=== PATIENT | male | born 1955 | race Caucasian/White ===

== ENCOUNTER 2018-02-28 20:52 | Emergency (ER) | payer OTHER ==
[2018-02-28 20:57] VITALS: RESP 18
[2018-02-28] MEDS ORDERED: SODIUM CHLORIDE 0.9% 1,000 ML IV STA ×2 (21:00)
[2018-02-28 21:41] LABS: Basophils # (A) 0.1 k/uL (0-0.2); Basophils % (A) 0 %; Eosinophils # (A) 0.3 k/uL (0-0.7); Eosinophils % (A) 2 %; HCT 48.5 % (39.0-53.0); Lymphocytes # (A) 1.4 k/uL (1.0-4.8); Lymphocytes % (A) 11 %; MCH 29.1 pg (25.0-35.0); MCV 88.2 fL (80.0-100.0); Mean Platelet Volume 6.8; Monocytes # (A) 0.4 k/uL (0-1.0); Monocytes % (A) 3 %; Neutrophils # (A) 10.4 k/uL (1.3-7.7); Neutrophils % (A) 82 %; Platelet Count 240 k/uL (150-450); RDW 13.6 % (11.5-15.5); WBC 12.7 k/uL (3.8-10.6)
--- NOTE | 2018-02-28 21:41 | ED ---
General Adult HPI - General Chief complaint: Dizziness Stated complaint: Dizziness Time Seen by Provider: 02/28/18 21:00 Source: patient, RN notes reviewed, old records reviewed Mode of arrival: ambulatory Limitations: no limitations - History of Present Illness Initial comments: This is a 63-year-old male to the ER for evaluation. This male presents for evaluation regards to near syncopal event. Patient has history of heart disease but coming in for evaluation of a diaphoretic event while at a wedding family. Patient states is been a long day. He started feeling well throughout the day but no chest pain no headache no shortness of breath no abdominal pain. He did have some abdominal cramping prior to dinner and then had an episode of severe diaphoresis and all symptoms are now resolved. Patient again currently denying any complaints - Related Data Allergies Allergy/AdvReac Type Severity Reaction Status Date / Time No Known Allergies Allergy Verified 02/28/18 20:56 Review of Systems ROS Statement: Those systems with pertinent positive or pertinent negative responses have been documented in the HPI. ROS Other: All systems not noted in ROS Statement are negative. Past Medical History Past Medical History: Cancer Additional Past Medical History / Comment(s): colon cancer History of Any Multi-Drug Resistant Organisms: None Reported Past Surgical History: Bowel Resection, Heart Catheterization With Stent Past Psychological History: No Psychological Hx Reported Smoking Status: Never smoker Past Alcohol Use History: None Reported Past Drug Use History: None Reported General Exam Limitations: no limitations General appearance: alert, in no apparent distress Head exam: Present: atraumatic, normocephalic, normal inspection Eye exam: Present: normal appearance, PERRL, EOMI. Absent: scleral icterus, conjunctival injection, periorbital swelling ENT exam: Present: normal exam, mucous membranes moist Neck exam: Present: normal inspection. Absent: tenderness, meningismus, lymphadenopathy Respiratory exam: Present: normal lung sounds bilaterally. Absent: respiratory distress, wheezes, rales, rhonchi, stridor Cardiovascular Exam: Present: regular rate, normal rhythm, normal heart sounds. Absent: systolic murmur, diastolic murmur, rubs, gallop, clicks GI/Abdominal exam: Present: soft, normal bowel sounds. Absent: distended, tenderness, guarding, rebound, rigid Extremities exam: Present: normal inspection, full ROM, normal capillary refill. Absent: tenderness, pedal edema, joint swelling, calf tenderness Back exam: Present: normal inspection Neurological exam: Present: alert, oriented X3, CN II-XII intact Psychiatric exam: Present: normal affect, normal mood Skin exam: Present: warm, dry, intact, normal color. Absent: rash Course Vital Signs 02/28/18 02/28/18 02/28/18 20:54 21:35 22:46 Temperature 97.7 F Pulse Rate 88 90 94 Respiratory 18 18 18 Rate Blood Pressure 126/77 155/84 146/99 O2 Sat by Pulse 99 94 L 98 Oximetry 02/28/18 22:59 Temperature 97.4 F L Pulse Rate 99 Respiratory 18 Rate Blood Pressure 154/84 O2 Sat by Pulse 96 Oximetry - Reevaluation(s) Reevaluation #1: Social patient at length regarding her system, diaphoresis and also causes of syncope. Patient states he feels well like to be discharged home, questions are answered EKG Findings - EKG Comments: EKG Findings:: EKG shows sinus rhythm rate of 90, AR 150, QRS 146, QTc 477 Medical Decision Making - Medical Decision Making 63 male the ER with nonspecific near syncopal event. No headache chest pain shortness breath or abdominal pain. Patient has normal EKG and normal troponin , patient can be discharged home as he feels well after IV fluid - Lab Data Result diagrams: 02/28/18 21:24 02/28/18 21:24 Lab Results 02/28/18 02/28/18 02/28/18 Range/Units 21:24 21:24 21:24 WBC 12.7 H (3.8-10.6) k/uL RBC 5.50 (4.30-5.90) m/uL Hgb 16.0 (13.0-17.5) gm/dL Hct 48.5 (39.0-53.0) % MCV 88.2 (80.0-100.0) fL MCH 29.1 (25.0-35.0) pg MCHC 33.0 (31.0-37.0) g/dL RDW 13.6 (11.5-15.5) % Plt Count 240 (150-450) k/uL Neutrophils % 82 % Lymphocytes % 11 % Monocytes % 3 % Eosinophils % 2 % Basophils % 0 % Neutrophils # 10.4 H (1.3-7.7) k/uL Lymphocytes # 1.4 (1.0-4.8) k/uL Monocytes # 0.4 (0-1.0) k/uL Eosinophils # 0.3 (0-0.7) k/uL Basophils # 0.1 (0-0.2) k/uL PT (9.0-12.0) sec INR (<1.2) APTT (22.0-30.0) sec Sodium 140 (137-145) mmol/L Potassium 4.4 (3.5-5.1) mmol/L Chloride 106 (98-107) mmol/L Carbon Dioxide 26 (22-30) mmol/L Anion Gap 8 mmol/L BUN 23 H (9-20) mg/dL Creatinine 1.13 (0.66-1.25) mg/dL Est GFR (CKD-EPI)AfAm 81 (>60 ml/min/1.73 sqM) Est GFR (CKD-EPI)NonAf 70 (>60 ml/min/1.73 sqM) Glucose 103 H (74-99) mg/dL Calcium 10.7 H (8.4-10.2) mg/dL Phosphorus 4.5 (2.5-4.5) mg/dL Magnesium 2.1 (1.6-2.3) mg/dL Total Bilirubin 0.7 (0.2-1.3) mg/dL AST 28 (17-59) U/L ALT 26 (21-72) U/L Alkaline Phosphatase 70 (38-126) U/L Total Creatine Kinase 92 (55-170) U/L CK-MB (CK-2) 2.2 (0.0-2.4) ng/mL CK-MB (CK-2) Rel Index 2.4 Troponin I <0.012 (0.000-0.034) ng/mL Total Protein 7.9 (6.3-8.2) g/dL Albumin 4.5 (3.5-5.0) g/dL 02/28/18 Range/Units 21:24 WBC (3.8-10.6) k/uL RBC (4.30-5.90) m/uL Hgb (13.0-17.5) gm/dL Hct (39.0-53.0) % MCV (80.0-100.0) fL MCH (25.0-35.0) pg MCHC (31.0-37.0) g/dL RDW (11.5-15.5) % Plt Count (150-450) k/uL Neutrophils % % Lymphocytes % % Monocytes % % Eosinophils % % Basophils % % Neutrophils # (1.3-7.7) k/uL Lymphocytes # (1.0-4.8) k/uL Monocytes # (0-1.0) k/uL Eosinophils # (0-0.7) k/uL Basophils # (0-0.2) k/uL PT 9.9 (9.0-12.0) sec INR 1.0 (<1.2) APTT 19.9 L (22.0-30.0) sec Sodium (137-145) mmol/L Potassium (3.5-5.1) mmol/L Chloride (98-107) mmol/L Carbon Dioxide (22-30) mmol/L Anion Gap mmol/L BUN (9-20) mg/dL Creatinine (0.66-1.25) mg/dL Est GFR (CKD-EPI)AfAm (>60 ml/min/1.73 sqM) Est GFR (CKD-EPI)NonAf (>60 ml/min/1.73 sqM) Glucose (74-99) mg/dL Calcium (8.4-10.2) mg/dL Phosphorus (2.5-4.5) mg/dL Magnesium (1.6-2.3) mg/dL Total Bilirubin (0.2-1.3) mg/dL AST (17-59) U/L ALT (21-72) U/L Alkaline Phosphatase (38-126) U/L Total Creatine Kinase (55-170) U/L CK-MB (CK-2) (0.0-2.4) ng/mL CK-MB (CK-2) Rel Index Troponin I (0.000-0.034) ng/mL Total Protein (6.3-8.2) g/dL Albumin (3.5-5.0) g/dL Disposition Clinical Impression: Dehydration, Orthostatic hypotension, Near syncope Disposition: HOME SELF-CARE Condition: Good Instructions: Near Syncope (ED) Is patient prescribed a controlled substance at d/c from ED?: No Referrals: Vinh Shin DO [Primary Care Provider] - 1-2 days
[2018-02-28 21:50] LABS: Albumin 4.5 g/dL (3.5-5.0); Calcium 10.7 mg/dL (8.4-10.2); Magnesium 2.1 mg/dL (1.6-2.3); Phosphorus 4.5 mg/dL (2.5-4.5); Potassium 4.4 mmol/L (3.5-5.1); Total Bilirubin 0.7 mg/dL (0.2-1.3); Total Protein 7.9 g/dL (6.3-8.2)
[2018-02-28 21:52] LABS: Creatine Kinase 92 U/L (55-170)
[2018-02-28 21:53] LABS: Prothrombin Time 9.9 sec (9.0-12.0)
[2018-02-28 22:05] LABS: Creatine Kinase MB 2.2 ng/mL (0.0-2.4); Troponin I <0.012 ng/mL (0.000-0.034)
--- NOTE | 2018-02-28 22:08 | XR ---
EXAMINATION TYPE: XR chest 2V DATE OF EXAM: 02/28/2018 COMPARISON: None INDICATION: Weakness dizziness TECHNIQUE: Frontal and lateral views of the chest are obtained. FINDINGS: The heart size is normal. The pulmonary vasculature is normal. The lungs are clear. IMPRESSION: 1. No acute pulmonary process.
[2018-02-28 22:10] LABS: Partial Thromboplastin Time 19.9 sec (22.0-30.0)
[2018-02-28 23:02] VITALS: BP 154/84; PULSE 99; TEMP 97.4
== END 2018-02-28 22:40 | disposition home or self-care (01) ==
LOC: EC 20:52
DX: I95.1 Orthostatic hypotension (principal); E86.0 Dehydration; Z85.038 Personal history of other malignant neoplasm of large intestine; Z90.49 Acquired absence of other specified parts of digestive tract; Z95.5 Presence of coronary angioplasty implant and graft
CPT/HCPCS: 36415; 71046; 80053; 82550; 82553; 83735; 84100; 84484; 85025; 85610; 85730; 93005; 96360; 96361; 99284

== ENCOUNTER → 2021-09-21 | Outpatient (CLI) | payer BC ==
--- NOTE | 2021-09-23 11:21 | XR ---
Lumbar spine HISTORY: R202,M5450 PARESTHESIA,LBP 3 views the lumbar spine There is multilevel spondylosis present. Lumbar vertebral bodies show preserved height. Bone minerali zation may be slightly reduced. Sclerosis present in the posterior elements. Disc heights are maintai aracely. There is a slight spinal curvature. Multiple surgical clips are present. IMPRESSION: Degenerative disc disease, spinal curvature and facet arthropathy, possible osteopenia
== END | disposition home or self-care (01) ==
LOC: RADXRYALE 16:10
PROVIDERS: ATTEND Family Medicine
DX: M51.36 Other intervertebral disc degeneration, lumbar region (principal); M43.8X6 Other specified deforming dorsopathies, lumbar region; M46.86 Other specified inflammatory spondylopathies, lumbar region
CPT/HCPCS: 72100

== ENCOUNTER → 2022-01-03 | Outpatient (CLI) | payer BC ==
--- NOTE | 2022-01-03 13:51 | XR ---
AP pelvis HISTORY: Z01.818 frontal view the pelvis limited on 4 images Penile prosthesis is present. Multiple surgical clips are noted. Bone mineralization, joint spaces an d alignment are maintained. Question an ostomy in the left lower quadrant. Probable vascular calcific ations are present within the pelvis. Probable facet arthropathy changes present in the lower lumbar spine. Degenerative disc changes are present in the lower lumbar spine. IMPRESSION: Postprocedural, postop changes. Degenerative disc disease.
== END | disposition home or self-care (01) ==
LOC: RADXRMAIN 13:16
PROVIDERS: ATTEND Physical Medicine & Rehabilitation
DX: Z18.10 Retained metal fragments, unspecified (principal); M47.817 Spondylosis without myelopathy or radiculopathy, lumbosacral region; M41.26 Other idiopathic scoliosis, lumbar region
CPT/HCPCS: 72170

== ENCOUNTER → 2022-01-16 | Outpatient (CLI) | payer BC ==
--- NOTE | 2022-01-16 07:18 | CT ---
EXAMINATION TYPE: CT lumbar spine wo con CT DLP: 1035.9 mGycm, Automated exposure control for dose reduction was used. DATE OF EXAM: 01/16/2022 6:42 AM COMPARISON: Lumbar spine radiograph 09/21/2021. 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 Pain down Rt leg TECHNIQUE: Multiple axial images were obtained from the midportion of T11 through the sacroiliac sade nts. Soft tissue and bone windows in coronal and sagittal planes were obtained and reviewed. FINDINGS: Alignment: There are 5 lumbar type vertebral bodies within normal alignment. Bone: No evidence of fracture is identified. Prominent right S2 region Tarlov cyst. Multilevel anter ior osteophytosis. Discs: T12-L1: No spinal canal or neural foraminal stenosis is identified. L1-L2: No spinal canal or neural foraminal stenosis is identified. L2-L3: No spinal canal or neural foraminal stenosis is identified. L3-L4: No spinal canal or neural foraminal stenosis is identified. L4-L5: No spinal canal or neural foraminal stenosis is identified. L5-S1: Broad-based disc bulge without evidence of disc herniation or significant spinal canal stenosi s. The neural foramen are patent bilaterally. Other: Retroperitoneal surgical clips noted. IMPRESSION: 1. No evidence of fracture of the lumbar spine. 2. Minimal degenerative disc disease most pronounced at L5-S1.
== END | disposition home or self-care (01) ==
LOC: RADCTMAIN 06:24
PROVIDERS: ATTEND Physical Medicine & Rehabilitation
DX: M47.817 Spondylosis without myelopathy or radiculopathy, lumbosacral region (principal); M41.26 Other idiopathic scoliosis, lumbar region
CPT/HCPCS: 72131

== ENCOUNTER → 2023-04-09 | Outpatient (CLI) | payer MEDICARE ==
--- NOTE | 2023-04-09 15:38 | US ---
EXAMINATION TYPE: US thyroid st tissue head/neck DATE OF EXAM: 04/09/2023 COMPARISON: NONE CLINICAL INDICATION: Male, 68 years old with history of Z80.8 FAMILY HISTORY OF MALIGNANT NEOPLASM O, R94.6; Hx of parathyroid removal GLAND SIZE: Right Lobe: 4.0 x 1.6 x 2.0 cm Overall Parenchyma: heterogenous Left Lobe: 3.9 x 1.78 x 1.9 cm Overall Parenchyma: heterogenous Isthmus Thickness: 0.7 cm NODULES- Bilateral heterogenous thyroid lobes with no prominent nodules visualized at time of scan RIGHT: # of nodules measured on right: 0 LEFT: # of nodules measured on left: 0 ISTHMUS: # of nodules measured in the isthmus: 0 Bilateral neck scanned, no evidence of lymphadenopathy. IMPRESSION: Diffusely heterogeneous thyroid gland could reflect goiter or diffuse thyroiditis. Unable to delineat e discrete nodules.
== END | disposition home or self-care (01) ==
LOC: RADUSWWP 14:07
PROVIDERS: ATTEND Family Medicine
DX: E07.89 Other specified disorders of thyroid (principal); R94.6 Abnormal results of thyroid function studies; Z80.8 Family history of malignant neoplasm of other organs or systems; Z90.89 Acquired absence of other organs
CPT/HCPCS: 76536

== ENCOUNTER 2023-05-02 05:37 | Day surgery (SDC) | payer MEDICARE, OTHER ==
[2023-04-28 12:28] VITALS: BMI 33.3
--- NOTE | 2023-05-02 05:21 | P.GSHP ---
History of Present Illness H&P Date: 05/02/23 CHIEF COMPLAINT: Ventral hernia HISTORY OF PRESENT ILLNESS: The patient is a 68-year-old male presents with a history of swelling and pain along the abdomen from a hernia of the abdomen for over 5+ years. He has prior history of colectomy resulting in hernia. Now he presents for surgical intervention. PAST MEDICAL HISTORY: Please see list. PAST SURGICAL HISTORY: Please see list. MEDICATIONS: Please see list. ALLERGIES: Please see list. SOCIAL HISTORY: No illicit drug use FAMILY HISTORY: No reports of Crohn disease or ulcerative colitis. REVIEW OF ORGAN SYSTEMS: CONSTITUTIONAL: No reports of fevers or chills. No reports of weight loss despite prior attempts. GI: Colon cancer history is post resection CARDIAC: History of cardiac stent placement HEENT: Denies any trouble with vision, hearing or nosebleeds. No difficulty swallowing. LYMPHATIC: The patient denies any lumps and bumps around the neck. ENDOCRINE: Denies any thyroid disorders. Denies any blood sugar glucose intolerance. RESPIRATORY: Denies pneumonia. Denies any troubles with breathing or dyspnea on exertion. GENITOURINARY: Denies any blood in urine or increased urinary frequency. MUSCULOSKELETAL: Denies any back pain, stiffness, joint arthritis. NEUROLOGIC: Denies any numbness or tingling along the distal extremities. No seizure disorders or headaches. PSYCHIATRIC: Denies depression or suidical ideation. HEMATOLOGIC: Denies any abnormal bleeding or bruising. PHYSICAL EXAM: VITAL SIGNS: Stable GENERAL: Well-developed pleasant male in no acute distress. HEENT: No scleral icterus. Extraocular movements grossly intact. Moist buccal mucosa. NECK: Supple without lymphadenopathy. CHEST: Unlabored respirations. Equal bilateral excursions. CARDIOVASCULAR: Regular rate and rhythm. Distal 2+ pulses. ABDOMEN: Soft, nondistended. Palpable defect of the abdomen. No peritoneal signs. Ostomy present MUSCULOSKELETAL: No clubbing, cyanosis, or edema. ASSESSMENT: 1. Ventral hernia PLAN: 1. Recommend proceeding with robotic ventral hernia repair with mesh. 2. Benefits and risks of surgical intervention was discussed including possibility of open technique. 3. DVT prophylaxis. 4. Antibiotic prophylaxis. 5. Non narcotic pain management including abdominal wall block described 6. Blood sugar glucose described. 7. Weight loss management described. 8. He is elevated risk due to pre-existing cardiac disease Past Medical History Past Medical History: Cancer, Hyperlipidemia, Hypertension Additional Past Medical History / Comment(s): Hx colon cancer 20 yrs ago. Hx skin cancer. Hx [place] in the 1970's. Has colostomy. History of Any Multi-Drug Resistant Organisms: None Reported Past Surgical History: Bowel Resection, Heart Catheterization With Stent Past Anesthesia/Blood Transfusion Reactions: No Reported Reaction Date of Last Stent Placement:: 2012 Past Psychological History: No Psychological Hx Reported Smoking Status: Never smoker Past Alcohol Use History: None Reported Past Drug Use History: None Reported - Past Family History Mother Family Medical History: Cancer Father Family Medical History: Cancer Brother(s) Family Medical History: Cancer Sister(s) Family Medical History: Cancer Medications and Allergies Home Medications Medication Instructions Recorded Confirmed Type Aspirin [Adult Low Dose Aspirin EC] 81 mg PO DAILY 04/28/23 04/28/23 History Famotidine 40 mg PO QAM 04/28/23 04/28/23 History amLODIPine BESYLATE 10 mg PO QAM 04/28/23 04/28/23 History Allergies Allergy/AdvReac Type Severity Reaction Status Date / Time No Known Allergies Allergy Verified 04/28/23 12:05
[~2023-05-02 05:37] MED LIST: ACETAMINOPHEN TAB 500 MG TAB PO PRN; HEPARIN SODIUM,PORCINE/PF 5,000 UNIT/0.5 ML SYRINGE SQ PRN; MELOXICAM 7.5 MG TAB PO PRN; ONDANSETRON 4 MG/2 ML VIAL IVP PRN
[2023-05-02] MEDS ORDERED: DEXAMETHASONE SOD PHOSPHATE 4 MG/ML 1 ML VIAL IV ONE (05:40)
[2023-05-02] MEDS ORDERED: MIDAZOLAM 2 MG/2 ML VIAL IV PRN (05:40)
[2023-05-02] MEDS ORDERED: LIDOCAINE 1% (10MG/ML) FOR IV START INTRADERMA PRN (05:40)
[2023-05-02] MEDS ORDERED: HYDROmorphone 0.5 MG/0.5 ML SYRINGE IVP PRN (05:40)
[2023-05-02] MEDS ORDERED: LACTATED RINGERS 1,000 ML IV SCH (05:40)
[2023-05-02] MEDS ORDERED: ONDANSETRON 4 MG/2 ML VIAL IVP ONE (05:40)
[2023-05-02 06:40] LABS: Basophils # (A) 0.1 k/uL (0-0.2); Basophils % (A) 1 %; Eosinophils # (A) 0.6 k/uL (0-0.7); Eosinophils % (A) 9 %; HCT 43.5 % (39.0-53.0); HGB 14.8 gm/dL (13.0-17.5); Lymphocytes # (A) 1.7 k/uL (1.0-4.8); Lymphocytes % (A) 27 %; MCH 28.9 pg (25.0-35.0); Mean Platelet Volume 7.2; Monocytes # (A) 0.5 k/uL (0-1.0); Monocytes % (A) 8 %; Neutrophils # (A) 3.3 k/uL (1.3-7.7); Neutrophils % (A) 52 %; Platelet Count 240 k/uL (150-450); RBC 5.12 m/uL (4.30-5.90); WBC 6.3 k/uL (3.8-10.6)
[2023-05-02 06:42] VITALS: TEMP 98.4
[2023-05-02 06:55] LABS: ALT 27 U/L (4-49); AST 31 U/L (17-59); African American GFR (CKD) >90 (>60 ml/min/1.73 sqM); Albumin 4.2 g/dL (3.5-5.0); Alkaline Phosphatase 76 U/L (38-126); Anion Gap 11 mmol/L; Blood Urea Nitrogen 13 mg/dL (9-20); Carbon Dioxide 23 mmol/L (22-30); Chloride 106 mmol/L (98-107); Glucose 106 mg/dL (74-99); Non-African American GFR(CKD) 89 (>60 ml/min/1.73 sqM); Potassium 3.8 mmol/L (3.5-5.1); Sodium 140 mmol/L (137-145); Total Bilirubin 0.9 mg/dL (0.2-1.3); Total Protein 7.4 g/dL (6.3-8.2)
[2023-05-02] MEDS ORDERED: fentaNYL (PF) 50 MCG/ML 2 ML AMP IVP ONE (06:58)
[2023-05-02] MEDS ORDERED: MIDAZOLAM 2 MG/2 ML VIAL IVP ONE (06:58)
[2023-05-02] MEDS ORDERED: SUCCINYLCHOLINE CHLORIDE 200 MG/10 ML VIAL IV ONE (07:05)
[2023-05-02] MEDS ORDERED: KETOROLAC 15 MG/ML 1 ML VIAL ONE (07:05)
[2023-05-02] MEDS ORDERED: PROPOFOL 10 MG/ML 20 ML VIAL IV ONE (07:05)
[2023-05-02] MEDS ORDERED: ROPIVACAINE 5 MG/ML 30 ML VIAL ONE (07:05)
[2023-05-02] MEDS ORDERED: LIDOCAINE 1% INJ 10MG/ML (20 ML MDV) ONE (07:05)
[2023-05-02] MEDS ORDERED: PHENYLEPHRINE-0.9% NACL SYG 1,000 MCG/10 ML SYRINGE ONE (07:05)
[2023-05-02] MEDS ORDERED: SODIUM CHLORIDE 0.9% (PF) 10 ML VIAL ONE (07:05)
[2023-05-02] MEDS ORDERED: ePHEDrine 50 MG/ML 1 ML VIAL ONE (07:05)
[2023-05-02] MEDS ORDERED: SUGAMMADEX SODIUM 200 MG/2 ML SDV IV ONE (07:05)
[2023-05-02] MEDS ORDERED: ROCURONIUM 10 MG/ML (5 ML VIAL) IV ONE (07:05)
[2023-05-02] MEDS ORDERED: LIDOCAINE 2%-EPI 1:100,000 20 ML VIAL SQ ONE (07:33)
--- NOTE | 2023-05-02 07:40 | P.ANPRN ---
Procedure Note - Anesthesia - Nerve Block Performed Bilateral Erector Spinae Single Time Out Performed: Yes ([id number]) Date of Procedure: 05/02/23 Procedure Start Time: 06:52 Procedure Stop Time: 06:57 Location of Patient: PreOp Indication: Acute Post-Operative Pain, Requested by Surgeon Specifically requested for management of pain by : Josie Holt Sedation Type: Sedate with meaningful contact maintained Preparation: Sterile Prep Position: Prone Catheter: None Needle Types: Pajunk Needle Gauge: 21 Ultrasound used to visualize needle placement: Yes Ultrasound used to observe medication spread: Yes Injectate: 0.5% Ropivacaine (see comment for volume) (15cc + 10cc nacl pf each side) Blood Aspirated: No Pain Paresthesia on Injection Noted: No Resistance on Injection: Normal Image Stored and Saved: Yes Events: Uneventful and Well Tolerated
[2023-05-02] MEDS ORDERED: LACTATED RINGERS 1,000 ML IV ONE (08:15)
[2023-05-02] MEDS ORDERED: HYDROmorphone 0.5 MG/0.5 ML SYRINGE IVP ONE (09:05)
[2023-05-02 09:54] VITALS: RESP 18
[2023-05-02 10:49] VITALS: BP 133/71; PULSE 88
--- NOTE | 2023-05-02 17:36 | P.PN ---
Progress Note - Text Progress Note Date: 05/02/23 To Whom It May Concern: Chon Gaspar is under my general surgical care. He may return to work May 12, 2023. He is on 4 pounds lifting and exertional restrictions for 4 weeks to Jun 02, 2023. Regards, Josie Holt M.D., FACS
--- NOTE | 2023-06-02 12:52 | P.OP ---
Date of Procedure: 05/02/23 Description of Procedure: SURGEON: JOSIE HOLT MD PREOPERATIVE DIAGNOSES: 1. Recurrent incisional ventral hernia with intermittent small bowel obstruction 2. Hypertensive heart disease 3. Gastroesophageal reflux disease 4. History of colon cancer status post complete abdominal colectomy with ileostomy 5. Coronary artery disease 6. Cardiac catheterization status post stent placement POSTOPERATIVE DIAGNOSES: 1. Recurrent incisional ventral hernia with intermittent small bowel obstruc tion, 5 cm 2. Hypertensive heart disease 3. Gastroesophageal reflux disease 4. History of colon cancer status post complete abdominal colectomy with ileostomy 5. Coronary artery disease 6. Cardiac catheterization status post stent placement 7. Intra-abdominal peritoneal adhesions, severe OPERATION: 1. Robotic-assisted daVinci Xi laparoscopic repair of initial incarcerated incisional ventral hernia 5 x 5 cm with fascial imbrication [address] mesh 2. Robotic-assisted daVinci Xi laparoscopic extensive lysis of adhesions over 1 hour ANESTHESIA: General with local ESTIMATED BLOOD LOSS: 5 mL. SPECIMENS: None. COMPLICATIONS: None. Operative Findings: 1. Severe intra-abdominal adhesions along the midline and left lateral abdominal wall of ostomy 2. Extensive lysis of adhesions over 1 hour robotic-assisted approach, with prior mesh repair identified 3. Ileostomy identified at left lower quadrant INDICATIONS: The patient is a 68-year-old male who presents with incisional ventral hernia of the left lower quadrant following a previous ostomy with total abdominal colectomy for colon cancer. Surgical intervention with laparoscopic versus robotic and open techniques were reviewed. Placement of mesh was also reviewed. Benefits and risks were thoroughly described. Informed consent was obtained. DESCRIPTION OF PROCEDURE: The patient was brought into the operating room and laid in supine position. After general induction, the abdomen had been prepped and draped in standard sterile fashion. Ioban draping was also placed. Prior to incision, a timeout protocol was confirmed with surgical team regarding the patient's name including procedures to be performed. The robot was primed prior to the procedure. A field block using local anesthetis was placed along hernia site including the proposed port sites. Initial incision was made with an #11 blade along the left upper quadrant. A 0 degree 5 mm laparoscopic trocar entry was performed. Diagnostic laparoscopy demonstrated severe peritoneal adhesions along the midline. Peritoneal adhesions of small bowel to the abdominal wall along the midline was identified. Three (3) Robotic trochars, 8 mm were placed along the right lateral abdominal wall, both right upper quadrant and right lower quadrant The 5-mm port was exchanged for an 8 mm robotic port. An accessory 12 mm trocar was upsized at the left upper quadrant. Placements of the ports were 20 cm from the target anatomy and 10 cm apart. The da Janis XI robot was previously primed, prepped and draped then docked along the right side of the patient. I then sat at the robot Da Janis XI console where working arms of the robot including Bovie cautery connected to robotic scissors, vessel sealer and graspers placed by the machine assistant. Adhesions along the midline were initially addressed with scissors and vessel sealer. Extensive lysis of adhesions occurred over 1 hour without enterotomies using vessel sealer and scissors. Interloop adhesions were taken down. Exposure of prior mesh of the subcutaneous tissue at the midline was identified consistent with prior hernia repair. Adhesions about the left lower quadrant ileostomy were also released. The hernia bordering fascia was cleaned of peritoneal fat. Next, hemostasis was checked with cautery. The hernia defect 5-cm was oversewn using #1 V-LOC with fascial imbrication 3. Ventralight ST mesh, 11.4 cm was placed along the repair with rough side towards the abdominal wall. The mesh was tacked using 2- 0 V-LOC, absorbable. A final endoscopic imaging was obtained. All instruments and pneumoperitoneum were evacuated from the abdominal cavity. The da Janis XI robot was undocked from the patient. I re-scrubbed into the case for closure of incisions. The incisions were reapproximated using 4-0 Monocryl in an interrupted subcuticular fashion. Liquid glue was applied to the skin. At the end of the procedure, needle, sponge, and instrument count had been verified correct by surgical product sales consultant. The patient was taken to the postanesthesia care unit in stable condition with abdominal binder. Plan - Discharge Summary Discharge Rx Participant: No New Discharge Prescriptions: New Acetaminophen Tab [Tylenol Tab] 1,000 mg PO Q6HR PRN #30 tablet PRN Reason: Pain Cyclobenzaprine [Flexeril] 10 mg PO TID #30 tab Ibuprofen [Motrin] 600 mg PO Q8HR PRN #30 tab PRN Reason: Pain Continue Famotidine 40 mg PO QAM amLODIPine BESYLATE 10 mg PO QAM Aspirin [Adult Low Dose Aspirin EC] 81 mg PO DAILY Discharge Medication List Aspirin [Adult Low Dose Aspirin EC] 81 mg PO DAILY 04/28/23 [History] Famotidine 40 mg PO QAM 04/28/23 [History] amLODIPine BESYLATE 10 mg PO QAM 04/28/23 [History] Acetaminophen Tab [Tylenol Tab] 1,000 mg PO Q6HR PRN #30 tablet 05/02/23 [Rx] Cyclobenzaprine [Flexeril] 10 mg PO TID #30 tab 05/02/23 [Rx] Ibuprofen [Motrin] 600 mg PO Q8HR PRN #30 tab 05/02/23 [Rx] Follow up Appointment(s)/Referral(s): Josie Holt MD [STAFF PHYSICIAN] - 05/13/23 2:00 pm Patient Instructions/Handouts: *Surgery [facility] - (Anesthesia) Discharge Instructions Outpatient Surgery, Abdominal Binder (DC), Ventral Hernia Repair (GEN), Lysis of Abdominal Adhesions (DC) Activity/Diet/Wound Care/Special Instructions: No lifting for 4 pounds in 4 weeks, Jun 02 Using antibacterial soap. May shower. No bathtub soaks for 2 weeks, May 16 Wear abdominal binder daily for comfort except for showering. Use ice along incisions for today to prevent swelling. Use Tylenol, simethicone and ibuprofen or Aleve scheduled for the next 24-48 hours for best pain relief. Discharge Disposition: HOME SELF-CARE
== END 2023-05-02 11:05 | disposition home or self-care (01) ==
LOC: OR 05:37
PROVIDERS: ATTEND Surgery Plastic and Reconstructive Surgery
DX: K43.2 Incisional hernia without obstruction or gangrene (principal); K56.50 Intestinal adhesions [bands], unspecified as to partial versus complete obstruction; I11.9 Hypertensive heart disease without heart failure; I25.10 Atherosclerotic heart disease of native coronary artery without angina pectoris; E78.5 Hyperlipidemia, unspecified; K21.9 Gastro-esophageal reflux disease without esophagitis; Z85.038 Personal history of other malignant neoplasm of large intestine; Z85.828 Personal history of other malignant neoplasm of skin; Z80.9 Family history of malignant neoplasm, unspecified; Z79.82 Long term (current) use of aspirin; Z79.899 Other long term (current) drug therapy; Z98.890 Other specified postprocedural states; Z95.5 Presence of coronary angioplasty implant and graft
CPT/HCPCS: 49618; S2900; 64999; 80053; 85025